=== PATIENT | female | born 1990 | race Caucasian/White ===

== ENCOUNTER → 2019-12-14 | Emergency (ER) | payer OTHER ==
[~2019-12-14] VITALS: Ht 160 cm; Wt 56.7 kg
[~2019-12-14] MED LIST: KETO10TA2 PO
== END | disposition left against medical advice (07) ==
LOC: ER 15:11
DX: Z53.20 Procedure and treatment not carried out because of patient's decision for unspecified reasons (principal)

== ENCOUNTER 2019-12-16 17:51 | Emergency (ER) | payer OTHER ==
[~2019-12-16] VITALS: Ht 160 cm; Wt 56.7 kg
[2019-12-16] MEDS ORDERED: KETO10TA2 PO (20:24)
== END 2019-12-16 21:07 | disposition home or self-care (01) ==
LOC: ER 17:51
DX: S60.211A Contusion of right wrist, initial encounter (principal); S80.212A Abrasion, left knee, initial encounter; W18.39XA Other fall on same level, initial encounter; Y93.01 Activity, walking, marching and hiking; Y92.832 Beach as the place of occurrence of the external cause; Y99.8 Other external cause status

== ENCOUNTER 2020-05-06 18:56 | Emergency (ER) | payer OTHER ==
[~2020-05-06] VITALS: Ht 160 cm; Wt 50.8 kg
== END 2020-05-06 20:20 | disposition home or self-care (01) ==
LOC: ER 18:56
DX: S61.212A Laceration without foreign body of right middle finger without damage to nail, initial encounter (principal); W45.8XXA Other foreign body or object entering through skin, initial encounter; Y93.89 Activity, other specified; Y92.018 Other place in single-family (private) house as the place of occurrence of the external cause; Y99.8 Other external cause status

== ENCOUNTER → 2020-05-07 | Emergency (ER) | payer OTHER ==
[~2020-05-07] VITALS: Ht 160 cm; Wt 56.7 kg
== END | disposition left against medical advice (07) ==
LOC: ER 12:41
DX: K29.70 Gastritis, unspecified, without bleeding (principal); R10.13 Epigastric pain